=== PATIENT | female | born 1995 | race Two or more races ===

== ENCOUNTER 2016-11-24 22:45 | Emergency (ER) | payer SELFPAY ==
[2016-11-24 22:52] VITALS: BMI 24.7
[2016-11-24] MEDS ORDERED: SODIUM CHLORIDE 0.9% 3 ML FLUSH FLUSH PRN (23:11)
[2016-11-24] MEDS ORDERED: NS 1,000 ML IV ONE (23:11)
[2016-11-24] MEDS ORDERED: ONDANSETRON HCL 4 MG/2 ML VIAL IV STA (23:11)
--- NOTE | 2016-11-24 23:17 | EDPRACDOC ---
- General Information Chief Complaint: Generalized Weakness Stated Complaint: HEADACHE & NUMBNESS Time Seen by Provider: 11/24/16 23:03 Information Source: Patient Mode Of Arrival: Car Home Medications: Home Medications No Home Medications 1 nacl PO DAILY 10/13/12 Norethindrone-Ethinyl Estrad [Ortho-Novum] 1 each PO DAILY #14 tablet 12/18/13 Ketorolac Tromethamine [Toradol] 10 mg PO Q6H PRN #20 tab 11/25/16 Promethazine [Phenergan] 25 mg PO Q8H PRN #30 tab 11/25/16 Allergies/Adverse Reactions: Allergies Allergy/AdvReac Type Severity Reaction Status Date / Time No Known Allergies Allergy Verified 12/18/13 11:02 - History of Present Illness Onset: one hour HPI: PT PRESENTS WITH LEFT SIDED HEADACHE, DIFFICULTY WITH WORD FINDING, SHAKINESS, NUMBNESS TO FINGERS, AND NAUSEA WHICH BEGAN AN HOUR OR SO AGO WHILE IN [place]. PT ADMITS TO MIGRAINES APPROXIMATELY TWICE PER MONTH. THIS HEADACHE FEELS DIFFERENT THAN USUAL. Location: Reports: Temporal (LEFT) Pain Quality: Reports: Moderate, Sharp, Aching Prior work up: Denies: CT Associated Signs and Symptoms: Reports: Chronic Headaches, Nausea/Vomiting, Other (SPEECH DIFFICULTY NOW RESOLVED). Denies: Loss of Consciousness ED Past Medical History - History Reviewed Yes Nurses notes reviewed and agree except as marked - Patient Medical History Neurological History: Reports: Migraine Psychological History: Denies: Depression Systemic History: Denies: Cancer - Family Medical History Reports: Diabetes (MOM) - Social Medical History Smoking Status: Never smoker Lives In: Assisted Living EDM Review of Systems - Review of Systems ROS Negative Except as Marked: Yes All systems reviewed and were negative except as marked Constitutional: Fatigue, Weakness, Other (SHAKINESS AFTER ONSET OF HEADACHE). negative: Fever Respiratory: negative: Shortness of Breath Cardiovascular: negative: Chest Pain Gastrointestinal: Nausea. negative: Pain, Vomiting Neurological: Headache, Speech Difficulty - Physical Exam Constitutional: Alert Oriented to: Time, Person, Place Last recorded Vital Signs: Last Vital Signs Temp 98 F 11/24/16 22:49 Pulse 83 11/24/16 22:49 Resp 20 11/24/16 22:49 BP 139/93 11/24/16 22:49 Pulse Ox 99 11/24/16 22:49 Oxygen Pulse Oxygen Saturation 99 O2 Device Room Air Oxygen Flow Rate Fraction of Inspired Oxygen ( FIO2) - HEENT Head: negative: Deformity, Laceration Eye Exam: negative: Conjunctival Injection, Pale Conjunctiva Oropharynx: negative: Membranes Dry Nose: negative: Congestion, Discharge Neck: negative: Limited ROM - Respiratory/Cardiovascular Respiratory: Normal - CTA. negative: Accessory Muscle Use, Diminished, Tachypnea Cardiovascular: negative: Bradycardia, Tachycardia, Irregular - GI Auscultation: Normal Palpation: Normal Tenderness: Non tender - Musculoskeletal Extremities: Pedal Pulse (PALPABLE), Radial Pulse (PALPABLE). negative: Calf Tenderness, Pedal Edema - Integumentary Skin: Warm, Dry. negative: Rash - Neurologic Memory Impaired: Normal Motor Function: Normal Mood Description: Anxious Thought: Coherent Perception: Normal - Results 11/24/16 22:55 11/24/16 22:55 POC Capillary Glucose 94 MG/DL (70-99) 11/24/16 22:58 Lab Results 11/24/16 22:58 POC Capillary Glucose 94 Decision Time to Discharge: 01:29 - Departure Yes I personally saw and evaluated the patient. Disposition: Home Condition: Improved Final Diagnosis: Migraine Qualifiers: Migraine type: unspecified Status migrainosus presence: without status migrainosus Intractability: not intractable Qualified Code(s): G43.909 - Migraine, unspecified, not intractable, without status migrainosus Instructions: Migraine Headache (ED) Education/Counseling Given To: Patient Education/Counseling Given Regarding: Diagnosis, Treatment, Prognosis, Follow Up Referrals: None,No Provider [Primary Care Provider] - Call for Appointment Prescriptions: Ketorolac Tromethamine [Toradol] 10 mg PO Q6H PRN #20 tab PRN Reason: Pain Promethazine [Phenergan] 25 mg PO Q8H PRN #30 tab PRN Reason: Nausea/Vomiting
[2016-11-24 23:27] LABS: AUTOMATED BASOPHIL 0.6 % (0-2); AUTOMATED EOSINOPHIL 1.6 % (0-5); AUTOMATED LYMPH 39.5 % (17-44); AUTOMATED MONOCYTE 7.8 % (3-10); AUTOMATED NEUTROPHIL 50.5 % (45-76); MPV 7.3 fL (7.4-10.4)
[2016-11-24 23:31] LABS: ALL NEG? YES; LEUKOCYTES/URINE NEG (NEGATIVE); MDMA* NEG (NEGATIVE); METHAMPHETAMINES NEG (NEGATIVE); NITRITE/URINE NEG (NEGATIVE); OXYCODONE NEG (NEGATIVE); URINE OCCULT BLOOD NEG (NEG/TRACE); WBC/URINE 0-2 (0-5)
[2016-11-24 23:32] LABS: BLOOD UREA NITROGEN 17 MG/DL (7-17); CALCIUM 8.7 MG/DL (8.4-10.2); CALCULATED OSMOLALITY 271 MOs/Kg (270-290); CHLORIDE 102 mEq/L (98-107); GLUCOSE 102 MG/DL (70-99); SODIUM LEVEL 140 mEq/L (137-146)
[2016-11-24] MEDS ORDERED: MORPHINE 4 MG/ML INJECTION IV ONE (23:45)
--- NOTE | 2016-11-25 01:28 | DIRPT ---
CLINICAL DATA: Acute onset of severe headache and right hand numbness. Difficulty speaking. Initial encounter. EXAM: CT HEAD WITHOUT CONTRAST TECHNIQUE: Contiguous axial images were obtained from the base of the skull through the vertex without intravenous contrast. COMPARISON: None. FINDINGS: There is no evidence of acute infarction, mass lesion, or intra- or extra-axial hemorrhage on CT. The posterior fossa, including the cerebellum, brainstem and fourth ventricle, is within normal limits. The third and lateral ventricles, and basal ganglia are unremarkable in appearance. The cerebral hemispheres are symmetric in appearance, with normal deluca-white differentiation. No mass effect or midline shift is seen. There is no evidence of fracture; visualized osseous structures are unremarkable in appearance. The visualized portions of the orbits are within normal limits. The paranasal sinuses and mastoid air cells are well-aerated. No significant soft tissue abnormalities are seen. IMPRESSION: Unremarkable noncontrast CT of the head. Electronically Signed By: Darren Keith M.D. On: 11/25/2016 01:26
[2016-11-25] MEDS ORDERED: KETOROLAC TROMETH 30 MG/ML VIAL IV STA (01:29)
[2016-11-25 01:47] VITALS: BP 100/50; PULSE 79; TEMP 98.3
[2016-11-25] MEDS ORDERED: SODIUM CHLORIDE 0.9% 3 ML FLUSH FLUSH SCH (06:00)
== END 2016-11-25 01:45 | disposition home or self-care (01) ==
LOC: ED 22:45
DX: G43.909 Migraine, unspecified, not intractable, without status migrainosus (principal)
CPT/HCPCS: 36415; 70450; 80053; 80307; 81001; 81025; 82962; 85025; 96360; 96374; 96375; 99284; J2270; J2405